=== PATIENT | male | born 1960 | race Caucasian/White ===

== ENCOUNTER 2019-07-07 09:09 | Day surgery (SDC) | payer OTHER ==
[2019-07-03 12:11] VITALS: BMI 29.1
[~2019-07-07 09:09] MED LIST: LACTATED RINGERS 1,000 ML IV SCH; LIDOCAINE 1% 20 ML VIAL (10MG/ML) FOR IV START INTRADERMA PRN
[2019-07-07 09:37] VITALS: TEMP 98.2
[2019-07-07] MEDS ORDERED: PROPOFOL 10 MG/ML 20 ML VIAL IV ONE (09:58)
[2019-07-07] MEDS ORDERED: MIDAZOLAM 2 MG/2 ML VIAL ONE (09:58)
[2019-07-07] MEDS ORDERED: fentaNYL (PF) 50 MCG/ML 2 ML AMP ONE (09:58)
[2019-07-07 10:24] VITALS: RESP 18
--- NOTE | 2019-07-07 10:25 | P.PCN ---
Date of Procedure: 07/07/19 Description of Procedure: BRIEF HISTORY: Pleasant 58-year-old male with a medical history significant for gastroesophageal reflux disease presents for outpatient EGD. He reports intermittent use of omeprazole therapy for his symptoms. He does have breakthrough reflux. PROCEDURE PERFORMED: Esophagogastroduodenoscopy with biopsy. PREOPERATIVE DIAGNOSIS: GERD. ESTIMATED BLOOD LOSS: Minimal. IV sedation per anesthesia. PROCEDURE: After informed consent was obtained, the patient was brought into the endoscopy unit. IV sedation was administered by Anesthesia under continuous monitoring. Initially the Olympus GIF-190 video endoscope was inserted into the mouth. Esophagus intubated without any difficulty. It was gradually advanced into the stomach and duodenum and carefully examined. The bulb and the second part of the duodenum appeared normal with biopsies taken. The scope at this time was withdrawn to the stomach, adequately insufflated with air, and upon careful examination, mucosa of the antrum, body, cardia and the fundus appeared normal with mild scattered erythema suggestive of mild gastritis with biopsies taken. The scope was then withdrawn into the esophagus. The GE junction was located at 41 cm from the incisors, with a 2 cm hiatal hernia noted. The distal esophagus was significant for LA grade a esophagitis with biopsies of the distal esophagus taken. The patient tolerated the procedure well. IMPRESSION: 1. Mild gastritis antrum and body, biopsied. 2. LA grade a esophagitis in the distal esophagus with biopsies taken. 3. Small hiatal hernia. 4. Duodenal biopsies. RECOMMENDATIONS: The findings of this examination were discussed with the patient and his . Await pathology from biopsies. Would recommend patient take omeprazole daily and not as needed as he is currently taking it.
[2019-07-07 10:40] VITALS: BP 120/82; PULSE 60
== END 2019-07-07 10:55 | disposition home or self-care (01) ==
LOC: ORWHC2ENDO 09:09
PROVIDERS: ATTEND Internal Medicine
DX: K21.0 Gastro-esophageal reflux disease with esophagitis (principal); Z88.0 Allergy status to penicillin; Z79.899 Other long term (current) drug therapy; K29.70 Gastritis, unspecified, without bleeding; K44.9 Diaphragmatic hernia without obstruction or gangrene
CPT/HCPCS: 88305; 88313; 43239; J2250; J3010; J2704